=== PATIENT | male | born 1940 | race Caucasian/White ===

== ENCOUNTER 2019-02-10 17:39 | Inpatient (IN) ==
[2019-02-10] MEDS ORDERED: *HR* OxyCODONE Immed Rel 5 MG TABLET PO PRN (19:58)
[2019-02-10] MEDS ORDERED: 0.9 % Sodium Chloride 250 ML IV ONE ×2 (20:41→21:28)
[2019-02-10] MEDS: levETIRAcetam 250 MG TABLET PO SCH (21:55)
[2019-02-11 05:56] LABS: Basophils % 0.3 %; Eosinophils # 0.2 K/mcL (0.0-0.6); Eosinophils % 2.4 %; Hematocrit 25.6 % (37.5-50.1); Hemoglobin 8.3 g/dL (12.9-16.9); Immature Granulocytes % 0.9 % (0-4); Lymphocytes # 1.7 K/mcL (0.6-4.6); Lymphocytes % 17.6 %; Mean Corpuscular HGB Conc 32.4 g/dL (31.6-35.5); Mean Corpuscular Hemoglobin 33.9 pg (28.0-33.3); Mean Corpuscular Volume 104.5 fL (83.0-100.0); Mean Platelet Volume 9.2 fL (9.4-12.4); Monocytes # 1.1 K/mcL (0.0-1.3); Monocytes % 10.8 %; Neutrophils # 6.6 K/mcL (1.6-8.9); Platelet Count 175 K/mcL (140-400); Red Blood Count 2.45 M/mcL (4.19-5.50); Red Cell Distribution Width 14.6 % (11.5-14.5); White Blood Count 9.8 K/mcL (4.3-11.1)
[2019-02-11 06:06] LABS: INR 0.9; Prothrombin Time 10.7 Seconds (9.4-12.1)
[2019-02-11 06:09] LABS: Activated Partial Thrombo Time 30.6 Seconds (26.0-36.0)
[2019-02-11] MEDS: *HR* Enoxaparin 30 MG/0.3 ML SYRINGE SQ SCH ×2 (06:13→17:13)
[2019-02-11 06:22] LABS: BUN/Creatinine Ratio 38 (6-26); Blood Urea Nitrogen 31 mg/dL (8-23); Calcium 7.8 mg/dL (8.6-10.3); Carbon Dioxide 30 mEq/L (23-29); Chloride 101 mEq/L (98-107); Glucose 81 mg/dL (70-105); Osmolality,Calculated 284 (280-300); Potassium 4.2 mEq/L (3.5-5.1); Sodium 134 mEq/L (136-145); eGFR For African Americans > 60 (> 60); eGFR For Non-African Americans > 60 (> 60)
[2019-02-11] MEDS ORDERED: Aspirin 81 MG TAB.CHEW PO SCH (09:00)
[2019-02-11 09:09] LABS: % Iron Saturation 30 % (20-55); Iron 45 mcg/dL (65-175); Transferrin 107 mg/dL (203-362)
[2019-02-11 09:25] LABS: Ferritin 599 ng/mL (20-250)
[2019-02-11 09:31] LABS: Folate 9.3 ng/mL (3.0-16.0)
[2019-02-11] MEDS: predniSONE 5 MG TABLET PO SCH (09:38)
[2019-02-11] MEDS: levETIRAcetam 250 MG TABLET PO SCH ×2 (09:38→21:26)
--- NOTE | 2019-02-11 14:11 | Internal Med History&Physical ---
Date of Encounter: 02/11/19 Time of Encounter: 13:35 Assessment and Plan (1) Hip fracture, right Current visit: Yes Status: Acute Status post IM nailing repair. He is on Lovenox for DVT prophylaxis. PT and OT evaluations have been done. Qualifiers: Encounter type: subsequent encounter Fracture type: closed Fracture healing: with routine healing Qualified Code(s): S72.001D - Fracture of unspecified part of neck of right femur, subsequent encounter for closed fracture with routine healing (2) Macrocytic anemia Current visit: Yes Status: Acute Anemia new postoperatively. Macrocytosis present since July 2018. Workup will be ordered. (3) Azotemia Current visit: Yes Status: Acute BUN and creatinine decreased to 31 and 0.81 respectively today. Continue to monitor. (4) Rheumatoid arthritis Current visit: No Status: Chronic Continue prednisone, Plaquenil, azathioprine, and vitamin D. Qualifiers: Rheumatoid arthritis location: multiple sites Rheumatoid factor presence: unspecified presence Qualified Code(s): M06.9 - Rheumatoid arthritis, unspecified (5) HFrEF (heart failure with reduced ejection fraction) Current visit: No Status: Acute Asymptomatic. Lisinopril will be held due to borderline hypotension. Qualifiers: Heart failure chronicity: unspecified Qualified Code(s): I50.20 - Unspecified systolic (congestive) heart failure Internal Medicine - H&P: HPI Chief complaint: hip fx Admitted From: Hospital to Hospital Transfer Plans for Post Hospital Care: Home History of present illness: Mr. Schneider is a 78 year old male who was discharged to [facility] swing bed after February 08 [facility] stay for right intertrochanteric hip fracture repair. He had intramedullary nailing procedure by Dr. Chappell. He was discharged to swing bed for rehabilitation therapy prior to returning to independent living at home. He reports the fracture occurred from loss of balance. He denies syncope or sei zure. [facility] skeletal history is significant for rheumatoid arthritis. 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 He had left shoulder fracture several years ago with surgical repair. He denies other bone joint or muscle disorders. His most recent prior fall was approximately 2014. He does not use cane or walker for ambulation. Past Med Surg Social Fam HX - Past Medical History Medical history: arthritis, myocardial infarction, seizures, other Additional medical history: NH 3 years ago. Psychiatric history: no psych history - Past Surgical History Surgical History: tonsillectomy Additional surgical history: Bowel removal sx. - Social History Smoking Status: Former smoker Smokeless Tobacco Status: No Alcohol use: none Drug use: none - Family History Father Hx Family Endocrine Disorder: Yes (DM) Mother Adopted: [place]: Liudmila Brandon Age: 70 Family Member Ethnicity: Non- Living Status: Age at : 70 Cause of : Cancer Hx Family Cardiac Disorders: No Hx Family Respiratory Disorders: No Hx Family Cancer: Yes Hx Family GI Disorders: No Hx Family Genitourinary Disorders: No Hx Family Endocrine Disorder: Yes (DM) Hx Family Musculoskeletal Disorders: No Hx Family Neuromuscular Disorders: No Hx Family Neurologic Disorders: No Hx Family HEENT Disorders: No Hx Family Autoimmune Disorders: No Hx Family Reproductive Disorders: No Hx Family Psychosocial Disorders: No Hx Family Medical Disorders: No Internal Medicine - H&P: Meds Azathioprine [Imuran] 50 mg PO BID 11/12/16 [History] Calcium Carbonate/Vitamin D3 [Oyster Shell Calcium-Vit D Tab] 2 tab PO QPM 04/29/17 [History] Ferrous Sulfate [Iron] 325 mg PO BID 04/29/17 [History] Hydroxychloroquine [Plaquenuil] 200 mg PO Q48H 04/29/17 [History] Lansoprazole [Prevacid] 15 mg PO DAILY 04/29/17 [History] Calcium Carbonate/Vitamin D3 [Oyster Shell Calcium-Vit D Tab] 1 tab PO QAM 02/08/19 [History] Hydroxychloroquine [Plaquenuil] 400 mg PO Q48H 02/08/19 [History] LevETIRAcetam [Keppra] 500 mg PO BID 02/08/19 [History] Tamsulosin HCl 0.4 mg PO DAILY 02/08/19 [History] predniSONE [PredniSONE] 5 mg PO DAILY 02/08/19 [History] Aspirin 81 mg PO DAILY #30 tab.chew 02/10/19 [Rx] Enoxaparin [Lovenox] 30 mg SQ Q12HCO 28 Days syringe 02/10/19 [Rx] Lisinopril [Zestril] 2.5 mg PO DAILY tablet 02/10/19 [Rx] Oxycodone HCl 5 mg PO Q8H PRN 7 Days #15 tablet 02/10/19 [Rx] Polyethylene Glycol 3350 [MiraLAX] 17 gm PO DAILY #10 powd.pack 02/10/19 [Rx] Allergy/AdvReac Type Severity Reaction Status Date / Time No Known Allergies Allergy Verified 04/29/17 12:08 All Systems PM: A 10-system review of systems was performed and is negative for pertinent findings except as documented above in the HPI. Review of systems: Gen.: He states his weight has decreased approximately 8 pounds in the past y ear, unintentionally Cardiovascular: He denies hypertension NH DVT or pulmonary embolus. He was [facility] gn[facility] with HFrEF during his recent [facility] stay. Echocardiogram 02/08/2019 showed LVEF of 40-45%. There was moderate aortic stenosis and [id number] aortic regurgitation. There was mild tricuspid regurgitation. Estimated RVSP was 35 mmHg. The interventricular septum and posterior wall thickness measurements were 1.09 and 1.11 cm respectively. E/A ratio was 0.5. Respiratory: He smoked from approximately age [age] up to 5 packs per day. PFTs 10/08/2015 showed FEV1 86% predicted, FVC 82% predicted, FEV1/FVC 75%, MVV 78% predicted, RV 132% predicted, and DLCO (corrected) 29% predicted. He does not use home oxygen. GI: He had cholecystectomy and approximately 6 inches of colon resection due to polyps (?) approximately 2002. He denies follow-up colonoscopy has been done. He had remote inguinal hernia repair. He denies disorders of his liver or exocrine pancreas : He has BPH. He denies other kidney or bladder disorders. Neurologic: He denies large distribution strokes or seizures. Endocrine: He denies diabetes thyroid disease or hyperlipidemia Hematology/oncology: He was unaware he had anemia postoperatively. He denies internal malignancies or other blood disorders. Psychiatric: He denies anxiety depression or other mental health issues [place] skeletal: As per history of present illness. - Constitutional Vitals: Temp Pulse Resp BP Pulse Ox 97.5 F L 93 20 96/60 86 02/11/19 06:33 02/11/19 09:30 02/11/19 06:33 02/11/19 06:33 02/11/19 09:30 Exam: Gen.: He is a well-developed well-nourished male resting comfortably in bed who appears in no acute distress HEENT: Head is atraumatic and normocephalic. Eyes: EOMI. There is no scleral icterus. Mouth: Mucosa is moist. Neck: Supple and nontender. There is no thyromegaly or adenopathy noted. Heart: Regular without murmurs gallops or ectopics Lungs: No wheezes or crackles are heard. Abdomen: Soft and nontender. No masses or guarding are noted. Extremities: He has dressings over his right hip incision area which I did not remove. There is no cyanosis edema or clubbing noted. Dorsalis pedis and posterior tibial pulses are trace palpable. He has chronic venous stasis pigmentation changes of his feet. He has ulnar deviation of his fingers with MCP joint enlargement. Neurologic: Mental status: He is talkative and a good historian. Cranial nerves: Smile is symmetric. Forehead wrinkles bilaterally. Tongue protrudes midline. EOMI. Motor: There is no pronator drift. Cerebellar: Finger to nose is intact bilaterally. Skin: Warm and dry Internal Med - H&P Results - Labs CBC & Chem 7: 02/11/19 05:20 02/11/19 05:20 Labs: Short CBC 02/11/19 Range/Units 05:20 WBC 9.8 (4.3-11.1) K/mcL Hgb 8.3 L D (12.9-16.9) g/dL Hct 25.6 L (37.5-50.1) % Plt Count 175 (140-400) K/mcL Neutrophils # 6.6 (1.6-8.9) K/mcL BMP 02/11/19 05:20 Sodium 134 L Potassium 4.2 Chloride 101 Carbon Dioxide 30 H BUN 31 H Creatinine 0.81 Glucose 81 Calcium 7.8 L
[2019-02-11] MEDS: *HR* OxyCODONE Immed Rel 5 MG TABLET PO PRN (15:59)
[2019-02-11] MEDS: Acetaminophen 325 MG TABLET PO SCH ×3 (17:13→23:51)
[2019-02-12] MEDS: Acetaminophen 325 MG TABLET PO SCH ×3 (06:00→17:14)
[2019-02-12] MEDS: *HR* Enoxaparin 30 MG/0.3 ML SYRINGE SQ SCH ×2 (06:00→17:14)
[2019-02-12] MEDS: levETIRAcetam 250 MG TABLET PO SCH ×2 (09:02→20:21)
[2019-02-12] MEDS: predniSONE 5 MG TABLET PO SCH (09:02)
[2019-02-12] MEDS: Aspirin 81 MG TAB.CHEW PO SCH (09:03)
--- NOTE | 2019-02-12 14:12 | Internal Med Progress Note ---
Date of Encounter: 02/12/19 Time of Encounter: 14:00 - Assessment and plan (1) Hip fracture, right Current Visit: Yes Status: Acute Assessment and plan: February 12. Status post IM nailing repair. Continue Lovenox and PT/OT inte rvention. Qualifiers: Encounter type: subsequent encounter Fracture type: closed Fracture healing: with routine healing Qualified Code(s): S72.001D - Fracture of unspecified part of neck of right femur, subsequent encounter for closed fracture with routine healing (2) Macrocytic anemia Current Visit: Yes Status: Acute Assessment and plan: February 12. Anemia testing showed iron 45, transferrin saturation 30%, transferrin 107, ferritin 599, B12 408, and folate 9.3. Recheck CBC in a.m. (3) Azotemia Current Visit: Yes Status: Acute Assessment and plan: February 12. Recheck labs in a.m. (4) Rheumatoid arthritis Current Visit: No Status: Chronic Assessment and plan: February 12. Continue prednisone, Plaquenil, azathioprine, and vitamin D. Qualifiers: Rheumatoid arthritis location: multiple sites Rheumatoid factor presence: unspecified presence Qualified Code(s): M06.9 - Rheumatoid arthritis, unspecified (5) HFrEF (heart failure with reduced ejection fraction) Current Visit: No Status: Acute Assessment and plan: February 12. Asymptomatic. Remain off lisinopril due to borderline hypotension. Blood pressure has risen to 105/65 today. Qualifiers: Heart failure chronicity: unspecified Qualified Code(s): I50.20 - Unspecified systolic (congestive) heart failure - Subjective Interval history: February 12. He has no new complaints. - Constitutional Vitals: Temp Pulse Resp BP Pulse Ox 97.9 F 83 19 105/65 96 02/12/19 06:47 02/12/19 06:47 02/12/19 06:47 02/12/19 06:47 02/12/19 06:47 Exam: He is lying in bed and appears in no acute distress. Right hip incisions show no drainage with david intact. There is no pitting edema. I reviewed his medications and lab results. Internal Medicine: Result - Labs CBC & Chem 7: 02/11/19 05:20 02/11/19 05:20 - ABG Interpretation ABG results: PT/INR, D-dimer PT 10.7 Seconds (9.4-12.1) 02/11/19 05:20 Consult Discharge Plan - Plan Referrals: Alexx Hines MD [Primary Care Provider] - 1 week
[2019-02-13] MEDS: Acetaminophen 325 MG TABLET PO SCH ×4 (00:20→16:37)
[2019-02-13] MEDS: *HR* Enoxaparin 30 MG/0.3 ML SYRINGE SQ SCH ×2 (05:37→16:37)
[2019-02-13] MEDS: *HR* OxyCODONE Immed Rel 5 MG TABLET PO PRN ×2 (06:44→18:30)
[2019-02-13 07:00] LABS: Basophils # 0.1 K/mcL (0.0-0.2); Basophils % 0.5 %; Eosinophils # 0.4 K/mcL (0.0-0.6); Eosinophils % 3.9 %; Hematocrit 26.4 % (37.5-50.1); Hemoglobin 8.6 g/dL (12.9-16.9); Immature Granulocytes % 0.5 % (0-4); Lymphocytes # 2.2 K/mcL (0.6-4.6); Mean Corpuscular HGB Conc 32.6 g/dL (31.6-35.5); Mean Corpuscular Hemoglobin 33.6 pg (28.0-33.3); Mean Corpuscular Volume 103.1 fL (83.0-100.0); Mean Platelet Volume 9.3 fL (9.4-12.4); Neutrophils # 5.8 K/mcL (1.6-8.9); Platelet Count 239 K/mcL (140-400); Red Blood Count 2.56 M/mcL (4.19-5.50); Red Cell Distribution Width 14.5 % (11.5-14.5); Segmented Neutrophils % 61.1 %; White Blood Count 9.5 K/mcL (4.3-11.1)
[2019-02-13 07:41] LABS: BUN/Creatinine Ratio 35 (6-26); Blood Urea Nitrogen 28 mg/dL (8-23); Calcium 7.8 mg/dL (8.6-10.3); Carbon Dioxide 29 mEq/L (23-29); Chloride 103 mEq/L (98-107); Glucose 91 mg/dL (70-105); Osmolality,Calculated 287 (280-300); Potassium 4.4 mEq/L (3.5-5.1); Sodium 136 mEq/L (136-145); eGFR For African Americans > 60 (> 60); eGFR For Non-African Americans > 60 (> 60)
[2019-02-13] MEDS: predniSONE 5 MG TABLET PO SCH (08:52)
[2019-02-13] MEDS: levETIRAcetam 250 MG TABLET PO SCH ×2 (08:52→21:16)
[2019-02-13] MEDS: Ammonium Lactate 30 APPL/225 GM BOTTLE TP SCH (08:53)
--- NOTE | 2019-02-13 14:49 | Internal Med Progress Note ---
Date of Encounter: 02/13/19 Time of Encounter: 14:40 - Assessment and plan (1) Hip fracture, right Current Visit: Yes Status: Acute Assessment and plan: February 12. Status post IM nailing repair. Continue Lovenox and PT/OT inte rvention. February 13. Continue scheduled Tylenol every 6 hours. Add scheduled Ultram twice a day. Add trazodone at bedtime. Qualifiers: Encounter type: subsequent encounter Fracture type: closed Fracture healing: with routine healing Qualified Code(s): S72.001D - Fracture of unspecified part of neck of right femur, subsequent encounter for closed fracture with routine healing (2) Macrocytic anemia Current Visit: Yes Status: Acute Assessment and plan: February 12. Anemia testing showed iron 45, transferrin saturation 30%, transferrin 107, ferritin 599, B12 408, and folate 9.3. Recheck CBC in a.m. February 13. Hemoglobin slightly improved at 8.6. Continue to monitor periodically. (3) Azotemia Current Visit: Yes Status: Acute Assessment and plan: February 12. Recheck labs in a.m. February 13. BUN and creatinine 28 and 0.79 respectively today with estimated GFR> 60. Continue to monitor. (4) Rheumatoid arthritis Current Visit: No Status: Chronic Assessment and plan: February 12. Continue prednisone, Plaquenil, azathioprine, and vitamin D. Qualifiers: Rheumatoid arthritis location: multiple sites Rheumatoid factor presence: unspecified presence Qualified Code(s): M06.9 - Rheumatoid arthritis, unspecified (5) HFrEF (heart failure with reduced ejection fraction) Current Visit: No Status: Acute Assessment and plan: February 12. Asymptomatic. Remain off lisinopril due to borderline hypotension. Blood pressure has risen to 105/65 today. Qualifiers: Heart failure chronicity: unspecified Qualified Code(s): I50.20 - Unspecified systolic (congestive) heart failure - Subjective Interval history: February 12. He has no new complaints. February 13. He reports muscle cramps/pain in his right leg distal thigh which kept him from sleeping last night. - Constitutional Vitals: Temp Pulse Resp BP Pulse Ox 97.6 F 92 22 101/60 93 02/13/19 06:50 02/13/19 06:50 02/13/19 06:50 02/13/19 06:50 02/13/19 06:50 Exam: He is resting comfortably in bed and appears in no severe distress at present time. There appears to be resolving ecchymosis in his distal right anterior lateral upper leg. There is no significant pain on passive range of motion of the right knee. I reviewed his medications and lab results. Internal Medicine: Result - Labs CBC & Chem 7: 02/13/19 06:25 02/13/19 06:25 Labs: Short CBC 02/13/19 Range/Units 06:25 WBC 9.5 (4.3-11.1) K/mcL Hgb 8.6 L (12.9-16.9) g/dL Hct 26.4 L (37.5-50.1) % Plt Count 239 (140-400) K/mcL Neutrophils # 5.8 (1.6-8.9) K/mcL BMP 02/13/19 06:25 Sodium 136 Potassium 4.4 Chloride 103 Carbon Dioxide 29 BUN 28 H Creatinine 0.79 Glucose 91 Calcium 7.8 L - ABG Interpretation ABG results: PT/INR, D-dimer PT 10.7 Seconds (9.4-12.1) 02/11/19 05:20 Consult Discharge Plan - Plan Referrals: Alexx Hines MD [Primary Care Provider] - 1 week
[2019-02-13] MEDS: traMADol 50 MG TABLET PO SCH ×2 (15:21→21:15)
[2019-02-13] MEDS: traZODone 50 MG TABLET PO SCH (21:16)
[2019-02-14] MEDS: Acetaminophen 325 MG TABLET PO SCH ×4 (00:21→18:09)
[2019-02-14] MEDS: *HR* Enoxaparin 30 MG/0.3 ML SYRINGE SQ SCH ×2 (06:31→18:12)
[2019-02-14] MEDS: predniSONE 5 MG TABLET PO SCH (09:40)
[2019-02-14] MEDS: Aspirin 81 MG TAB.CHEW PO SCH (09:40)
[2019-02-14] MEDS: traMADol 50 MG TABLET PO SCH ×2 (09:40→19:48)
[2019-02-14] MEDS: levETIRAcetam 250 MG TABLET PO SCH ×2 (09:40→19:48)
[2019-02-14] MEDS: Ammonium Lactate 30 APPL/225 GM BOTTLE TP SCH (09:41)
[2019-02-14] MEDS: traZODone 50 MG TABLET PO SCH (19:48)
[2019-02-15] MEDS: Acetaminophen 325 MG TABLET PO SCH ×5 (00:12→23:08)
[2019-02-15] MEDS: *HR* Enoxaparin 30 MG/0.3 ML SYRINGE SQ SCH ×2 (06:33→17:12)
[2019-02-15] MEDS: traMADol 50 MG TABLET PO SCH ×2 (09:31→13:32)
[2019-02-15] MEDS: levETIRAcetam 250 MG TABLET PO SCH ×2 (09:32→20:19)
[2019-02-15] MEDS: predniSONE 5 MG TABLET PO SCH (09:32)
[2019-02-15] MEDS: Ammonium Lactate 30 APPL/225 GM BOTTLE TP SCH (09:34)
--- NOTE | 2019-02-15 11:24 | Internal Med Progress Note ---
Date of Encounter: 02/15/19 Time of Encounter: 11:00 - Assessment and plan (1) Hip fracture, right Current Visit: Yes Status: Acute Assessment and plan: February 12. Status post IM nailing repair. Continue Lovenox and PT/OT inte rvention. February 13. Continue scheduled Tylenol every 6 hours. Add scheduled Ultram twice a day. Add trazodone at bedtime. February 15. Increase Ultram to 100 mg twice a day. Qualifiers: Encounter type: subsequent encounter Fracture type: closed Fracture healing: with routine healing Qualified Code(s): S72.001D - Fracture of unspecified part of neck of right femur, subsequent encounter for closed fracture with routine healing (2) Macrocytic anemia Current Visit: Yes Status: Acute Assessment and plan: February 12. Anemia testing showed iron 45, transferrin saturation 30%, transfer rin 107, ferritin 599, B12 408, and folate 9.3. Recheck CBC in a.m. February 13. Hemoglobin slightly improved at 8.6. Continue to monitor periodically. (3) Azotemia Current Visit: Yes Status: Acute Assessment and plan: February 12. Recheck labs in a.m. February 13. BUN and creatinine 28 and 0.79 respectively today with estimated GFR> 60. Continue to monitor. (4) Rheumatoid arthritis Current Visit: No Status: Chronic Assessment and plan: February 12. Continue prednisone, Plaquenil, azathioprine, and vitamin D. Qualifiers: Rheumatoid arthritis location: multiple sites Rheumatoid factor presence: unspecified presence Qualified Code(s): M06.9 - Rheumatoid arthritis, unspecified (5) HFrEF (heart failure with reduced ejection fraction) Current Visit: No Status: Acute Assessment and plan: February 12. Asymptomatic. Remain off lisinopril due to borderline hypotension. Blood pressure has risen to 105/65 today. Qualifiers: Heart failure chronicity: unspecified Qualified Code(s): I50.20 - Unspecified systolic (congestive) heart failure - Subjective Interval history: February 12. He has no new complaints. February 13. He reports muscle cramps/pain in his right leg distal thigh which kept him from sleeping last night. February 15. He has no new complaints. He denies right hip pain at rest but states pain on exertion. - Constitutional Vitals: Temp Pulse Resp BP Pulse Ox 97.7 F 84 16 91/55 94 02/15/19 06:53 02/15/19 06:53 02/15/19 06:53 02/15/19 06:53 02/15/19 06:53 Exam: He is resting comfortably in bed and appears in no acute distress. Incisions show no evidence of infection with minimal drainage from the most distal incision. I reviewed his medications and lab results. Internal Medicine: Result - Labs CBC & Chem 7: 02/13/19 06:25 02/13/19 06:25 - ABG Interpretation ABG results: PT/INR, D-dimer PT 10.7 Seconds (9.4-12.1) 02/11/19 05:20 Consult Discharge Plan - Plan Referrals: Alexx Hines MD [Primary Care Provider] - 1 week
[2019-02-15] MEDS: traZODone 50 MG TABLET PO SCH (20:19)
[2019-02-16] MEDS: Acetaminophen 325 MG TABLET PO SCH ×3 (05:10→16:56)
[2019-02-16] MEDS: *HR* Enoxaparin 30 MG/0.3 ML SYRINGE SQ SCH ×2 (05:10→18:50)
[2019-02-16] MEDS: traMADol 50 MG TABLET PO SCH ×2 (06:30→13:57)
[2019-02-16 06:41] VITALS: BP 154/109
[2019-02-16] MEDS ORDERED: Ondansetron ODT 4 MG TAB.RAPDIS SL PRN (09:12)
[2019-02-16] MEDS: Aspirin 81 MG TAB.CHEW PO SCH (10:22)
[2019-02-16] MEDS: predniSONE 5 MG TABLET PO SCH (10:23)
[2019-02-16] MEDS: Ammonium Lactate 30 APPL/225 GM BOTTLE TP SCH (10:24)
[2019-02-16] MEDS: levETIRAcetam 250 MG TABLET PO SCH (10:24)
[2019-02-16] MEDS ORDERED: 0.9 % Sodium Chloride 1,000 ML ONE (17:42)
[2019-02-16 18:04] LABS: Basophils % 0.6 %; Eosinophils % 0.8 %; Hematocrit 30.3 % (37.5-50.1); Hemoglobin 9.4 g/dL (12.9-16.9); Immature Granulocytes % 0.9 % (0-4); Lymphocytes # 1.1 K/mcL (0.6-4.6); Lymphocytes % 21.3 %; Mean Corpuscular Hemoglobin 34.6 pg (28.0-33.3); Mean Platelet Volume 8.9 fL (9.4-12.4); Monocytes # 0.1 K/mcL (0.0-1.3); Monocytes % 1.5 %; Nucleated Red Blood Cells 1.3 /100 WBC (0); Platelet Count 208 K/mcL (140-400); Red Blood Count 2.72 M/mcL (4.19-5.50); Red Cell Distribution Width 16.1 % (11.5-14.5); Segmented Neutrophils % 74.9 %; White Blood Count 5.3 K/mcL (4.3-11.1)
[2019-02-16 18:08] LABS: Mean Corpuscular Volume 111.4 fL (83.0-100.0)
[2019-02-16 18:17] LABS: Calcium 8.7 mg/dL (8.6-10.3); Potassium 4.7 mEq/L (3.5-5.1)
[2019-02-16 18:23] LABS: Troponin I 0.18 ng/mL (< 0.04)
--- NOTE | 2019-02-16 18:35 | Death Note ---
Pronouncement Note - Date and Time of Date of : 02/16/19 Time of : 18:18 - PCOD Preliminary cause of : Pulmonary embolism - Summary Additional details: Patient was found unresponsive and without a pulse. Code was called. Compressions initiated. Patient was placed on monitor and found to be in PEA arrest. 2 minute cycles of chest compressions performed with administration of IV fluid bolus, 1 mg of epinephrine x 6, 1mg atropine x 1, 1 amp of bicarb x 2 throughout 22 minutes. At no point did patient regain a pulse or have rhythm change on the monitor. After asking the code team for any other thoughts or recommendations, the code was called at 18:18. Presumed cause of was pulmonary embolus following recent orthopedic surgery resulting in PEA cardiac arrest. Multiple attempts made to contact family during this time. The attending physician, Dr. Dodd, was notified. - Additional Data Confirmation of : no pulse, no respirations, no heart sounds Family: attempt made Attending/PCP notified?: Yes Attending physician: Stefan Dodd MD Was code activated?: Yes Autopsy requested?: No life claims examiner notified?: No Organ bank notified?: No Advance directives: No
[2019-02-16 18:37] LABS: Anisocytosis 1+ (Not Present); Macrocytosis Present (Not Present); Platelet Estimate Normal (Normal); Polychromasia 1+ (Not Present); Toxic Vacuolation Present (Not Present)
--- NOTE | 2019-02-16 18:57 | Emergency Department Note ---
START Narrative - START START: I would call as a rapid response to the floor. The patient was reportedly in the bathroom, had a bowel movement and then became acutely tachypneic, tachycardic and short of breath. He has not been recent vomiting appropriately and reportedly has been up and recovering from hip fracture. He has had 2 normal meals today and has been interactive. He currently will blink but does not follow commands. He has a respiratory rate of about 30 and a saturation, at best in the low 90s. We are having a difficult time obtaining a good pulse ox. He is tachycardic with a heart rate of 120 to 1:30. His blood pressure became precipitously worse rapidly. I evaluated the patient immediately on arrival. His pupils are about 2-3 mm and poorly responsive. His eyes are not deviated. He has a deep irregular respiration. His chest is normal and symmetric excursion. He is tachycardic without murmur. Abdomen somewhat scaphoid with a midline vertical incision from a previous surgery. Extremities are cool and somewhat pale. His feet are cool but not cyanotic. He will withdraw somewhat with his left foot but not his right on arrival. He was not seen to move either upper extremity. I ordered fluid boluses as well as laboratory studies and, if possible, a CT PE study as this is the likely cause of his distress. He is continued to decline such that he became bradycardic and was started to become bradycardic. He is intubated orotracheally without difficulty with a 7-Swedish endotracheal tube, secured at 23 cm and bilateral breath sounds confirmed. He did not have palpable pulses and no chest compressions were started. We did obtain a Doppler and confirmed that he had pulseless electrical activity at 5:56 PM. Patient was continued on serial doses of epinephrine, given 1 dose of atropine for bradycardia and 2 boluses of sodium bicarbonate. The patient had strong femoral pulses I Doppler with compressions and no pulse on positive for a pulse check. Care had been discussed with Dr. Dodd and then with Dr. Alexx Hines. Dr. Alexx Hines did come to the department and took over the ongoing code had 6:11 PM. His pulse check had the first episode of a faint arterial pulse at 6:[address] Hines is continued the code at this point and I return to the emergency department. Diagnosis: acute cardiopulmonary arrest. Ongoing resuscitation Likely cause pulmonary embolism status post hip replacement Procedure orotracheal intubation 7-Swedish, 23 cm at the lips, positive CO2 color change
[2019-02-16] MEDS ORDERED: *HR* Atropine Sulfate 1 MG/10 ML SYRINGE ONE (21:00)
[2019-02-16] MEDS ORDERED: *HR* EPINEPHrine 1 MG/10 ML SYRINGE ONE (21:00)
--- NOTE | 2019-02-17 15:34 | Electrocardiograph Report ---
[address] [address] Test Date: 2019-02-16 Pat Name: Ray Schneider Department: [id number] Room: [facility] Gender: M Clerical Aide: Jean-Claude : 1940 Requested By: Jose Moss Order Number: [id number] Reading MD: Carlitos Luz Measurements Intervals [place] Rate: 120 P: 102 [place]: 235 QRS: 162 QRSD: 139 T: 31 QT: 293 QTc: 364 Interpretive Statements SINUS TACHYCARDIA WITH FIRST DEGREE AV BLOCK ARM LEADS REVERSED [INVERTED P AND QRS IN I] RBBB DIFFUSE ST DEPRESSION Electronically Signed On 02-17-2019 15:32:41 EDT by Carlitos Luz
== END 2019-02-16 21:20 | disposition expired | DRG 559 ==
LOC: INPPIK 18:55
PROVIDERS: ADMIT Internal Medicine; ATTEND Internal Medicine